=== PATIENT | male | born 1965 | race Caucasian/White ===

== ENCOUNTER → 2018-06-27 | Emergency (ER) | payer MEDICARE, MEDICAID ==
[~2018-06-27] VITALS: Ht 188 cm; Wt 84.7 kg
[~2018-06-27] MED LIST: CIPR-230 PO; IBUP-1984 PO
[2018-06-27 11:59] VITALS: BP 136/86
== END | disposition home or self-care (01) ==
LOC: ER 11:49
DX: S91.311A Laceration without foreign body, right foot, initial encounter (principal); Z85.9 Personal history of malignant neoplasm, unspecified; Z79.899 Other long term (current) drug therapy; W22.8XXA Striking against or struck by other objects, initial encounter; Y93.01 Activity, walking, marching and hiking; Y92.89 Other specified places as the place of occurrence of the external cause; Y99.8 Other external cause status
CPT/HCPCS: 12001; 99283; A6449

== ENCOUNTER 2018-06-30 12:30 | Emergency (ER) | payer MEDICARE, MEDICAID ==
[~2018-06-30] VITALS: Ht 190.5 cm; Wt 87.4 kg
[2018-06-30 12:36] VITALS: BP 130/85
== END 2018-06-30 13:07 | disposition home or self-care (01) ==
LOC: ER 12:30
DX: S91.311D Laceration without foreign body, right foot, subsequent encounter (principal); Z79.899 Other long term (current) drug therapy; W22.8XXD Striking against or struck by other objects, subsequent encounter
CPT/HCPCS: 99282

== ENCOUNTER 2018-07-09 16:50 | Emergency (ER) | payer MEDICARE, MEDICAID ==
[~2018-07-09] VITALS: Ht 190.5 cm; Wt 84.0 kg
[2018-07-09 17:54] VITALS: BP 139/78
== END 2018-07-09 17:58 | disposition home or self-care (01) ==
LOC: ER 16:51
DX: S91.311D Laceration without foreign body, right foot, subsequent encounter (principal); Z85.9 Personal history of malignant neoplasm, unspecified; Z79.899 Other long term (current) drug therapy; W22.8XXD Striking against or struck by other objects, subsequent encounter
CPT/HCPCS: 99281

== ENCOUNTER 2025-06-12 08:59 | Emergency (ER) | payer MEDICAID, MEDICARE ==
[~2025-06-12] VITALS: Ht 188 cm; Wt 95.0 kg
[~2025-06-12 08:59] MED LIST changes: +ALBU18HF2 INH; +BECL7.3A INH; -CIPR-230 PO; -IBUP-1984 PO
[2025-06-12] MEDS: ondansetron/PF 4mg/2ml inj IV ONE (09:39)
[2025-06-12] MEDS: morphine 4 MG/ML inj SYRINge IV PRN (09:39)
[2025-06-12] MEDS: normal saline 1000ML IV soln IVB ONE (09:40)
--- NOTE | 2025-06-12 09:42 | Physician Documentation ---
History of Present Illness ~ Chief Complaint: Mechanical Fall Stated Complaint: FALL BACK PAIN Time Seen by MD: 09:11 Primary Medical Doctor: none Source: patient Mode of Arrival: POV Exam Limitations: no limitations HPI Chief Complaint: Fell 12 ft, left flank pain Caveat: None Independent Historians: None History of Present Illness: Patient is a 60-year-old man with a history of AML who was picking blackberries out in [place] three days ago when he fell down a 12 ft revealing/glen. He hit the left side of his head and landed on his left flank/side. Patient did not come to the hospital because he did not feel too bad after the fall but he has developed severe pain over the left flank, left arm along with swelling and ecchymosis over the left hip, left flank and back and left upper extremity. Patient denies any shortness a breath or chest pain. Patient's pain is severe in his worse with movement or deep breath. Patient did hit the left side of his head but denies any loss of consciousness. No nausea or vomiting. Abdominal pain. Review of systems: All systems were reviewed and are negative except for what is indicated in the history of present illness. Past Medical History: AML Past Surgical History: Noncontributory Social History: No tobacco use, drinks alcohol, denies other drug use Medications: Reviewed as documented Nursing Notes Allergies: Reviewed as documented in Nursing Notes Tetanus within 5 Years?: Yes Medication Reconciliation Allergies: Coded Allergies: No Known Allergies (Unverified , 06/27/18) Scheduled Albuterol Sulfate (Ventolin Hfa), 2 PUFFS INH Q4HPRN, (Reported) Beclomethasone Dipropionate (Qvar 40 MCG INHALER), 2 PUFFS INH BID, (Reported) Scheduled PRN Hydrocodone Bit/Acetaminophen (Hydrocodone-Apap 10-325 Tablet), 1 TAB PO TID PRN PRN for pain Past Medical History Past Medical History: *CANCER* Past Surgical History: noncontributory Patient History: FH: HTN (hypertension) MOTHER, Age: 73 FH: leukemia FATHER, Age: 76 Alcohol Use: None Drug Use: none Lives In: Home Review of Systems All Other Systems at this time: Reviewed and Negative ROS Patient denies any other acute symptoms other than above. All other systems are negative Physical Exam Vital Signs: RN Vital Signs have been reviewed: Yes, Temperature: 98.0, Source: Temporal, Heart Rate: 82, Respiratory Rate: 16, BP: 147/96, Pulse Oximetry: 97, Weight: 95.000 Oxygen Flow Rate: 0 Pulse Oximetry Reflects: adequate oxygenation Physical Exam General Appearance: MODERATE DISTRESS HEENT: Normal OP, moist oral mucosa, PERRL, EOMI, HEAD AND FACE. TRAUMATIC Neck: supple, normal ROM, trachea midline, NO MIDLINE TENDERNESS Pulmonary: No respiratory distress, CTA, BS equal Cardiac: RRR, no murmur, rub or gallop, GI: nondistended, soft, nontender, normal bowel sounds, no guarding, no rebound CHEST: ATRAUMATIC, ANTERIOR NONTENDER, LEFT LATERAL CHEST WALL DIFFUSE TENDERNESS Back: MULTIPLE AREAS OF ECCHYMOSIS OVER THE LEFT LATERAL HIP, LEFT LOWER FLANK AND LEFT LOWER BACK., NO MIDLINE TENDERNESS Extremities: LEFT UPPER EXTREMITY HAS SOME DIFFUSE SWELLING AND MOST PROMINENT IN THE PROXIMAL FOREARM ELBOW AND DISTAL UPPER ARM. CHRONIC LEFT LOWER EXTREMITY SWELLING. Skin: intact, dry, warm, no rashes, SEE EXTREMITY EXAM ABOVE Neuro: AAOx3, speech is clear, no focal motor weakness Psych: normal affect, good eye contact, no apparent hallucination, normal speech Progress Results/Orders Results/Orders Orders - PAUL HASSAN MD Ct Chest Abdomen Pelvis (06/12/25 09:12) Monitor (06/12/25 09:12) Saline Lock (06/12/25 09:12) Ct Head (06/12/25 09:36) Completed Orders - PAUL HASSAN MD Cbc/Diff (06/12/25 09:12) Lipase (06/12/25 09:12) Urinalysis, Cult If Indicated (06/12/25 09:12) Ct Chest Abdomen Pelvis (06/12/25 09:12) Ondansetron Inj. (Zofran 4mg/2ml Vial) (06/12/25 09:15) Morphine 4mg/Ml Inj. (Morphine Inj.) (06/12/25 09:15) Normal Saline 1000ml (0.9% Sodium Chlori (06/12/25 09:15) Ct Head (06/12/25 09:36) Iohexol 300mg/Ml 100ml Inj. (Omnipaque-3 (06/12/25 09:53) CMP (06/12/25 09:32) Hydrocodone/Apap 10/325 ([place] 10/325mg (06/12/25 13:25) Vital Signs 06/12/25 06/12/25 06/12/25 06/12/25 09:01 09:26 09:26 09:39 Temp 98.0 97.8 Pulse 82 80 Resp 16 14 14 12 B/P (MAP) 147/96 130/82 (98) Pulse Ox 97 96 O2 Flow Rate 0 0 06/12/25 06/12/25 10:30 13:39 Temp 98.4 Pulse 66 Resp 14 16 B/P (MAP) 127/71 Pulse Ox 99 Laboratory Tests Test 06/12/25 09:32 06/12/25 12:28 White Blood Count 4.0 L Red Blood Count 3.53 L Hemoglobin 11.2 L Hematocrit 33.8 L Mean Corpuscular Volume 95.9 Mean Corpuscular Hemoglobin 31.7 H Mean Corpuscular Hemoglobin Concent 33.1 Red Cell Distribution Width 14.9 H Platelet Count 106 L Mean Platelet Volume 8.0 Neutrophils (%) (Auto) 73.7 Lymphocytes (%) (Auto) 13.1 L Monocytes (%) (Auto) 7.9 Eosinophils (%) (Auto) 4.5 Basophils (%) (Auto) 0.8 Neutrophils # (Auto) 2.9 Lymphocytes # (Auto) 0.5 L Monocytes # (Auto) 0.3 Eosinophils # (Auto) 0.2 Basophils # (Auto) 0.0 CBC Comment Sodium Level 134 L Potassium Level 4.2 Chloride Level 104 Carbon Dioxide Level 22.2 L Anion Gap 8 Blood Urea Nitrogen 17 Creatinine 0.84 Estimated GFR/1.73 m2 > 90 BUN/Creatinine Ratio 20.2 H Glucose Level 111 H Calcium Level 8.5 Total Bilirubin 1.4 H Aspartate Amino Transf (AST/SGOT) 54 H Alanine Aminotransferase (ALT/SGPT) 54 Alkaline Phosphatase 336 H Total Protein 7.1 Albumin 3.0 L Globulin 4.1 Albumin/Globulin Ratio 0.7 L Lipase 30 Chemistry Comments Urine Specimen Description Cln catch midstream Urine Color Yellow Urine Clarity Clear Urine pH 6.0 Urine Specific [place] 1.010 Urine Protein Negative Urine Glucose (UA) Negative Urine Ketones Negative Urine Occult Blood Negative Urine Nitrite Negative Urine Bilirubin Negative Urine Urobilinogen 1.0 Urine Leukocyte Esterase Negative Urine Culture Indicated Not ind Volume Urine Centrifuged 10 ml Urine Comment Medical Decision Making Findings Differential diagnosis includes but is not limited to: PNEUMOTHORAX, HEMOTHORAX, FLAIL CHEST, MULTIPLE RIB FRACTURES, INTRA-ABDOMINAL INJURY, RETROPERITONEAL HEMATOMA, VERTEBRAL FRACTURE, OTHER FRACTURES, CONTUSIONS, ABRASIONS CT CHEST ABDOMEN AND PELVIS WITH IV CONTRAST, INDICATION: TRAUMA IMPRESSION: 1. Cirrhotic liver morphology with small volume ascites in the abdomen and pelvis. 2. Numerous small calcifications in the liver, most prominent in the right hepatic lobe. Heterogeneous density adjacent to the lateral aspect of the right hepatic lobe with areas of low-density centrally and peripheral enhancement and extending to the lateral abdominal wall. Malignancy can not be excluded. Differential considerations would also include infection/abscess. Correlate with clinical findings. Liver mass protocol MRI without and with contrast could be considered to further characterize if clinically indicated. 3. Splenomegaly. 4. Scattered colonic diverticula without adjacent inflammatory changes to suggest diverticulitis. Limited evaluation for diverticulitis due to ascites. 5. Nonspecific nondilated fluid-filled small bowel loops. Findings may be seen with ileus or enteritis in the appropriate clinical setting. No small bowel obstruction. 6. Peribronchovascular opacities in the right lower lobe, may be infectious or inflammatory in nature and/or due to scarring. Mild ground-glass attenuation in the anterior aspect of the left lower lobe, also possibly infectious or inflammatory in nature. Areas of bronchial wall thickening are seen in the lung bases, greatest in the right lower lobe. 7. Mild nonspecific circumferential thickening of the wall of the cecum and ascending colon, may be inflammatory in nature. Other etiologies, including malignancy not excluded. 8. Additional findings as detailed above. CT head without IV contrast, indication: Trauma Impression: 1. No acute intracranial process. 2. Mild paranasal sinus disease. Laboratory data independent interpretation: CBC: PANCYTOPENIA, WBC 4, hemoglobin 11.2, PLT 106 CMP: Elevated LFTs, total bilirubin 1.4, AST 54, ALT 54, alk-phos 336, lipase is normal 30 Urinalysis: Normal Emergency department course/medical decision-making: PATIENT APPEARS TO BE NEUROLOGICALLY INTACT. THERE WAS NO EVIDENCE OF TRAUMATIC BRAIN INJURY ON HEAD CT. THE PATIENT DOES NOT APPEAR TO HAVE ANY TRAUMATIC INJURIES IDENTIFIED ON CT SCAN OF THE CHEST ABDOMEN AND PELVIS BUT HE HAS A MULTITUDE OF CHRONIC INCIDENTAL FINDINGS THAT WE WILL NEED TO BE WORKED UP AN OUTPATIENT. Test results and all the above discussed with the patient. Patient is given a copy of a CT report to take to his primary care doctor. Departure Time of Disposition: 10:47 Disposition: 01 HOME / SELF CARE / HOMELESS Impression: Primary Impression: Closed head injury Qualified Codes: S09.90XA - Unspecified injury of head, initial encounter Additional Impressions: Multiple contusions Pancytopenia Discharge Instructions: Chest Contusion, Adult, [id number], Contusion, [id number], Elbow Contusion, [id number], Head Injury, Adult, [id number] Additional Instructions: HAVE MULTIPLE FINDINGS ON YOUR ABDOMEN PELVIS CT SCAN THAT NEEDS FURTHER EVALUATION BY YOUR PRIMARY CARE DOCTOR. THERE ARE SOME FINDINGS THAT ARE CONCERNING FOR CANCER. YOU WILL NEED ADDITIONAL STUDIES SUCH AN MRI WITH AND WITHOUT CONTRAST TO EVALUATE THESE INCIDENTAL FINDINGS. THERE IS NO EVIDENCE OF INTRATHORACIC OR INTRA-ABDOMINAL INJURY FROM YOUR FALL. Prescriptions Hydrocodone Bit/Acetaminophen (Hydrocodone-Apap 10-325 Tablet) 10mg/325mg Tablet 1 TAB PO TID PRN PRN for pain, #20 TAB Prov: PAUL HASSAN MD 06/12/25 Education Educated: Patient Educated regarding: diagnosis, treatment Signature Scribe Signature: No scribe Attestation: No scribe PAUL HASSAN MD Jun 12, 2025 09:42
[2025-06-12 09:46] LABS: MEAN PLATELET VOLUME 8.0 FL (7.4-10.4); RED CELL DISTRIBUTION WIDTH 14.9 % (11.5-14.5)
[2025-06-12] MEDS ORDERED: iohexol 300mg/ml 100ml inj. ONE (09:53)
--- NOTE | 2025-06-12 10:30 | RADIOLOGY REPORT ---
EXAM: CT CT HEAD HISTORY: head trauma COMPARISON: None TECHNIQUE: Noncontrast axial CT images of the head were performed. Sagittal and coronal reformatted i mages were obtained. This CT exam was performed using 1 or more of the following dose reduction techn iques: Automated exposure control, adjustment of the mA and/or kv according to patient size, or the u se of iterative reconstruction techniques. Radiation Dose: CTDI volume is 66.39 mGy. Dose-length product is 1182.28 mGy*cm FINDINGS: No intracranial hemorrhage, mass, midline shift, hydrocephalus, or evidence of acute large vessel inf arct. There are Postoperative changes of Bilateral cataract extraction surgery. There is mucosal thic kening in the bilateral ethmoid and left frontal sinuses. The bilateral mastoid air cells and middle ear spaces are clear. No cranial fracture or scalp edema. IMPRESSION: 1. No acute intracranial process. 2. Mild paranasal sinus disease.
[2025-06-12 10:41] LABS: CREATININE 0.84 MG/DL (0.60-1.10); TOTAL CARBON DIOXIDE 22.2 MMOL/L (24-32); eCRCL 109 ML/MIN; eGFR > 90 ML/MIN
--- NOTE | 2025-06-12 11:05 | RADIOLOGY REPORT ---
CLINICAL INFORMATION: LEFT FLANK PAIN, TRAUMA. TECHNIQUE: Axial CT images of the chest, abdomen, and pelvis were obtained after the uneventful admin istration of 100 mL of Omnipaque 350 IV contrast. Coronal and sagittal reformatted images were obtain ed, reviewed, and stored. All CT scans at this medical facility are performed using dose modulation t echniques as appropriate to a performed exam including the following: Automated exposure control was utilized; adjustment of the MA and/or KV according to patient size; and use of iterative reconstructi on technique. CTDIvol = 19.86 mGy DLP = 1559.09 mGy-cm COMPARISON: None FINDINGS: CT CHEST: Aorta: No aneurysm or dissection. Scattered mild atherosclerotic calcification Cardiac: Heart size is within normal limits. Likely mild coronary artery calcification. Mediastinum/oscar: Mildly prominent right lower paratracheal lymph node measures up to 0.9 cm in short axis dimension, likely reactive. Additional smaller mediastinal lymph nodes are seen Lungs: [id number] bronchial wall thickening in the lung bases, most prominent in the right lowe r lobe. Patchy peribronchovascular opacities in the superior segment of the right lower lobe with adj acent bronchial wall thickening, may be infectious or inflammatory in nature or due to scarring. Depe ndent atelectasis in the left lower lobe. Mild ground-glass attenuation in the anterior aspect of the left lower lobe. No dense focal consolidation visualized. No pneumothorax or pleural effusion. Pulmonary arteries: No gross abnormality. Chest wall: No mass or other abnormality. Bones: No acute fracture or suspicious intraosseous lesions. CT ABDOMEN/PELVIS: Liver: Lobulated contour of the liver, consistent with cirrhosis in the appropriate clinical setting. Numerous small calcifications are seen in the liver, most prominent in the right hepatic lobe. Heter ogeneous appearance of the liver with fatty infiltration. Heterogeneous density with areas of interna l low-density and peripheral enhancement adjacent to the lateral aspect of the right hepatic lobe, ab utting areas of prominent calcification in the right hepatic lobe, measuring up to 3.3 x 2.6 by 5.9 c m, of uncertain etiology, malignancy or infection/ abscess not excluded. The areas of heterogeneous d ensity extend adjacent to the lateral abdominal wall. Portions of the hepatic flexure of the colon al so extend in close proximity to the process adjacent to the lateral aspect of the right hepatic lobe. Biliary: Gallbladder is not visualized, may be surgically absent. Spleen: Spleen is enlarged, measuring up to 18.5 cm in greatest dimension with [id number] peris plenic ascites. Pancreas: Moderate atrophy. Adrenal glands: Unremarkable. No mass. Kidneys: No hydronephrosis. Areas of scarring in both kidneys. No discrete renal mass identified. Aorta: Scattered atherosclerotic calcification. No abdominal aortic aneurysm. Retroperitoneum: Mildly prominent subcentimeter para-aortic and interaortocaval lymph nodes are seen. Mildly prominent bilateral external iliac lymph nodes are seen, also measuring less than 1 cm in paz rt axis dimension. Bowel/mesentery: Nonspecific nondilated fluid-filled small bowel loops. No small bowel obstruction. A ppendix is not visualized. Scattered colonic diverticula without adjacent inflammatory changes to sug gest diverticulitis. Somewhat limited evaluation for diverticulitis due to mild ascites obscuring vis ualization of the pericolonic fat. Nonspecific mild circumferential thickening of the wall of the cec um and ascending colon. Pelvic organs: Grossly unremarkable. Bladder: Unremarkable. No mass. Abdominal wall: No mass or hernia. Bones: No acute fracture or focal intraosseous lesion. IMPRESSION: 1. Cirrhotic liver morphology with small volume ascites in the abdomen and pelvis. 2. Numerous small calcifications in the liver, most prominent in the right hepatic lobe. Heterogeneou s density adjacent to the lateral aspect of the right hepatic lobe with areas of low-density centrall y and peripheral enhancement and extending to the lateral abdominal wall. Malignancy can not be exclu ded. Differential considerations would also include infection/abscess. Correlate with clinical findin gs. Liver mass protocol MRI without and with contrast could be considered to further characterize if clinically indicated. 3. Splenomegaly. 4. Scattered colonic diverticula without adjacent inflammatory changes to suggest diverticulitis. Torres ited evaluation for diverticulitis due to ascites. 5. Nonspecific nondilated fluid-filled small bowel loops. Findings may be seen with ileus or enteriti s in the appropriate clinical setting. No small bowel obstruction. 6. Peribronchovascular opacities in the right lower lobe, may be infectious or inflammatory in nature and/or due to scarring. Mild ground-glass attenuation in the anterior aspect of the left lower lobe, also possibly infectious or inflammatory in nature. Areas of bronchial wall thickening are seen in t he lung bases, greatest in the right lower lobe. 7. Mild nonspecific circumferential thickening of the wall of the cecum and ascending colon, may be i nflammatory in nature. Other etiologies, including malignancy not excluded. 8. Additional findings as detailed above.
[2025-06-12 12:49] LABS: LEUKOCYTE ESTERASE ,URINE NEGATIVE (Neg); NITRITES, URINE NEGATIVE (Neg); OCCULT BLOOD,URINE NEGATIVE (Neg)
[2025-06-12 12:50] LABS: UA COLLECTION TYPE CLN CATCH MIDSTREAM
[2025-06-12] MEDS ORDERED: HYDR-3973 PO (13:23)
[2025-06-12] MEDS: HYDROcodone/acetaminophen 10/325mg tab PO ONE (13:36)
[2025-06-12 13:39] VITALS: BP 127/71; PULSE 66; RESP 16; TEMP 98.4; O2SAT 99
== END 2025-06-12 13:41 | disposition home or self-care (01) ==
LOC: ER 08:59
DX: S70.02XA Contusion of left hip, initial encounter (principal); S30.1XXA Contusion of abdominal wall, initial encounter; S30.0XXA Contusion of lower back and pelvis, initial encounter; S09.90XA Unspecified injury of head, initial encounter; D61.818 Other pancytopenia; W15.XXXA Fall from cliff, initial encounter; Y93.89 Activity, other specified; Y92.89 Other specified places as the place of occurrence of the external cause; Y99.8 Other external cause status
CPT/HCPCS: 36415; 70450; 71260; 74177; 80053; 81003; 83690; 85025; 96361; 96374; 96375; 99285; J2270; J2405; J7030; Q9967